=== PATIENT | female | born 1995 | race Caucasian/White ===

== ENCOUNTER → 2021-06-22 12:19 | Outpatient (CLI) | payer MEDICAID, SELFPAY | PROVIDERS: Visit Provider Nurse Practitioner | DX: U07.1 COVID-19 (principal) | CPT/HCPCS: C9803; U0003; U0005 ==

== ENCOUNTER 2021-11-29 19:26 | Emergency (ER) | payer MEDICAID, SELFPAY ==
[2021-11-29 19:29] VITALS: BP 119/63; PULSE 89; RESP 18; TEMP 36.5; O2SAT 97; BMI 42.5
--- NOTE | 2021-11-29 20:00 | PC.NURSE ---
PT AWARE OF PLAN OF CARE AND IS AGREEABLE. FAMILY AT BEDSIDE.
[2021-11-29 20:17] LABS: Microscopic, Urine URINE MICROSCOPIC (MICROSCOPIC)
[2021-11-29 20:22] LABS: Basophils # 0.1 K/mm3 (0-0.2); Basophils % 1.4 % (0.1-2.0); Eosinophils # 0.2 K/mm3 (0.0-0.4); Eosinophils % 2.7 % (0.1-12.0); Hematocrit 41.9 % (37.0-47.0); Lymphocytes # 3.7 K/mm3 (0.7-4.5); Mean Corpuscular HGB Conc 33.3 g/dL (31.8-35.4); Mean Corpuscular Hemoglobin 30.5 pg (27.0-31.2); Mean Corpuscular Volume 91.6 fl (81-99); Monocytes # 0.4 K/mm3 (0.1-1.0); Monocytes % 5.8 % (1.7-9.3); Neutrophils # 2.4 K/mm3 (1.8-7.8); Platelet Count 372 K/mm3 (142-424); Red Blood Count 4.57 M/mm3 (4.20-5.40); Red Cell Distribution Width 12.9 % (11.5-17.5); White Blood Count 6.7 K/mm3 (4.8-10.8)
[2021-11-29 20:24] LABS: Appearance,Urine SL CLOUDY (Clear); Bilirubin,Urine Negative (Negative); Blood, Urine TRACE-I (Negative); Color,Urine YELLOW (Yellow); Glucose,Urine (UA) Negative (Negative); Ketones,Urine Negative (Negative); Leukocyte Esterase,Urine Negative (Negative); Nitrate,Urine POSITIVE (Negative); Protein,Urine Negative (Negative); Specific Gravity, Urine >= 1.030 (1.005-1.030); Urobilinogen,Urine 0.2 EU/dl (0.2)
[2021-11-29 20:29] LABS: MANUAL DIFFERENTIAL MANUAL DIFFERENTIAL (MANUAL DIFF)
[2021-11-29 20:36] LABS: Chloride 106 mmol/L (98-107); Potassium 3.3 mmoL/L (3.5-5.1); Sodium 139 mmol/L (136-145)
[2021-11-29 20:37] LABS: Bacteria,Urine 4+ /lpf; Calcium Oxalate Crystals,Urine 1+ /lpf; RBC,Urine Occasional #/hpf (0-3)
[2021-11-29 20:38] LABS: Alanine Aminotransferase 57 U/L (12-78); Amylase 40 U/L (30-110); Aspartate Amino Transferase 39 U/L (14-36); Blood Urea Nitrogen 11 mg/dl (7-17); Creatinine Clearance Estimated 106 mL/min (50-200); Estimated Glomerular Filt Rate 120 ml/min (>60); GFR (African American) 145 ML/MIN (>60); Lactic Acid 0.7 mmol/L (0.7-2.1)
[2021-11-29 20:39] LABS: Albumin Level 3.9 g/dl (3.5-5.0); Albumin/Globulin Ratio 1.4 (1.1-1.8); Alkaline Phosphatase 60 U/L (38-126); Anion Gap 8.3 mEq/L (5-15); Bilirubin,Total 0.8 mg/dl (0.2-1.3); Carbon Dioxide 28 mmol/L (22.0-30.0); Globulin 2.8 g/dL (1.3-3.2); Glucose 90 mg/dl (74-100); Lipase 55 U/L (23-300); Total Protein,Serum 6.7 g/dl (6.3-8.2)
[2021-11-29 20:47] LABS: Eosinophils % 1 % (0-3); Lymphocytes % 56 % (10-50); Monocytes % 2 % (2-9); Neutrophils % 38 % (42-76); Platelet Estimate Normal; RBC Morphology Normal; Total Cells Counted 100
[2021-11-29 20:49] LABS: Magnesium 1.6 mg/dl (1.6-2.3)
--- NOTE | 2021-11-29 20:51 | PC.NURSE ---
Spoke with Roxana at [facility] pertaining to pt record from previous ER visit
--- NOTE | 2021-11-29 21:00 | PC.NURSE ---
NO COMPLAINTS VOICED. PT AWARE OF PLAN AND EXPECTED WAIT TIMES. BLANKET PROVIDED FOR PATIENT COMFORT.
[2021-11-29 21:13] VITALS: BP 135/71; PULSE 57; O2SAT 98
--- NOTE | 2021-11-29 21:30 | CT_ITS ---
PROCEDURE INFORMATION: Exam: CT Abdomen And Pelvis With Contrast Exam date and time: 11/29/2021 9:46 PM Age: 26 years old Clinical indication: Nausea and vomiting and other: Diarrhea; Abdominal pain; Generalized; Prior surgery; Surgery date: 6+ months; Surgery type: Partial hysterectomy gb; Additional info: Pain, n/v/d TECHNIQUE: Imaging protocol: Computed tomography of the abdomen and pelvis with contrast. Radiation optimization: All CT scans at this facility use at least one of these dose optimization techniques: automated exposure control; mA and/or kV adjustment per patient size (includes targeted exams where dose is matched to clinical indication); or iterative reconstruction. Contrast material: ISOVUE; Contrast volume: 75 ml; Contrast route: IV; COMPARISON: No relevant prior studies available. FINDINGS: Liver: Normal. No mass. Gallbladder and bile ducts: Cholecystectomy. Pancreas: Normal. No ductal dilation. Spleen: Normal. No splenomegaly. Adrenal glands: Normal. No mass. Kidneys and ureters: There is a simple cyst 1 cm in the right kidney requiring no further follow-up. No hydronephrosis. Stomach and bowel: Air-fluid levels in the colon and nondistended small bowel loops which could reflect low-grade enterocolitis and diarrhea. No wall thickening is seen. Appendix: Normal appendix. Intraperitoneal space: Unremarkable. No free air. No significant fluid collection. Vasculature: Unremarkable. No abdominal aortic aneurysm. Lymph nodes: Unremarkable. No enlarged lymph nodes. Urinary bladder: Unremarkable as visualized. Reproductive: Hysterectomy. Bones/joints: Unremarkable. No acute fracture. Soft tissues: Unremarkable. IMPRESSION: Low-grade enterocolitis and diarrhea. No additional acute findings in the abdomen pelvis. COMMENTS: Consistent with the [employer] [place] [employer]'s Incidental Findings Committee white paper (J Am Josue Radiol 2018): Any incidental renal lesion less than 1 cm or classified as too small to characterize, or any incidental cystic renal lesion characterized as simple-appearing, is likely benign. No follow-up imaging is recommended for these lesions per consensus recommendations based on imaging criteria.
--- NOTE | 2021-11-29 21:47 | PC.NURSE ---
Pt gone to RAD for CT
--- NOTE | 2021-11-29 21:58 | PC.NURSE ---
Pt back from RAD
--- NOTE | 2021-11-29 22:20 | HMH.EDGENADL ---
ED Disposition Clinical Impression: Gastroenteritis, Hypokalemia Disposition: Home, Self-Care Condition on Discharge: Good Instructions: DI for Acute Abdominal Pain, DI for Enteritis Additional Instructions: Please follow-up with your primary care provider over the next 72 hours. 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 Make sure that you stay orally hydrated. Return to the emergency department for any new or worsening symptoms. Prescriptions: Potassium Chloride [Klor-Con M20] 20 meq PO BID 5 Days #10 tab Transmission Status: Received by Sansan Promethazine HCl [Phenergan 25mg tab] 25 mg PO Q6H PRN #12 tab PRN Reason: Nausea And Vomiting Transmission Status: Received by [facility] Referrals: Rosie Mc APRN [Primary Care Provider] - - Critical Care Critical Care Time: No Attestation: On 11/29/21, the high probability of a clinically significant, sudden or life threatening deterioration of the following system(s) required my full and direct attention, intervention and personal management. The time I documented below is in addition to time spent performing reported procedures but includes the following listed in this critical care notation. Medical Decision Making - Natanael Inquiry Pt receiving controlled substance: No Vital Signs: 11/29/21 19:29 11/29/21 21:13 11/29/21 22:56 Temperature 97.7 F Temperature Source Oral Pulse Rate 57 L 60 Pulse Rate [Left Radial] 89 Respiratory Rate 18 20 Blood Pressure 135/71 115/64 Blood Pressure [Right Arm] 119/63 Blood Pressure Mean [Right Arm] 81 Blood Pressure Source [Right Arm] Automatic Cuff Blood Pressure Position [Right Arm] Sitting 02 Sat by Pulse Oximetry 97 98 99 Oxygen Delivery Method Room Air Room Air Room Air 11/29/21 23:48 Temperature 98.1 F Temperature Source Oral Pulse Rate 78 Pulse Rate [Left Radial] Respiratory Rate 16 Blood Pressure 99/67 L Blood Pressure [Right Arm] Blood Pressure Mean [Right Arm] Blood Pressure Source [Right Arm] Blood Pressure Position [Right Arm] 02 Sat by Pulse Oximetry Oxygen Delivery Method Room Air - Lab Data Lab Results 11/29/21 20:00: Urine Color Yellow, Urine Appearance Sl cloudy, Urine pH 6.0, Ur Specific Smoaks >= 1.030, Urine Protein Negative, Urine Glucose (UA) Negative, Urine Ketones Negative, Urine Blood Trace-i, Urine Nitrate Positive, Urine Bilirubin Negative, Urine Urobilinogen 0.2, Ur Leukocyte Esterase Negative, Urine RBC Occasional, Urine WBC 5-10, Ur Squamous Epith Cells 5-10, Calcium Oxalate Crystal 1+, Urine Bacteria 4+ 11/29/21 20:09: WBC 6.7, RBC 4.57, Hgb 14.0, Hct 41.9, MCV 91.6, MCH 30.5, MCHC 33.3, RDW 12.9, Plt Count 372, MPV 9.0, Neut % (Auto) 35.0 L, Lymph % (Auto) 55.0 H, Rolette % (Auto) 5.8, Eos % (Auto) 2.7, Baso % (Auto) 1.4, Neut # (Auto) 2.4, Lymph # (Auto) 3.7, Rolette # (Auto) 0.4, Eos # (Auto) 0.2, Baso # (Auto) 0.1, Total Counted 100, Neutrophils % (Manual) 38 L, Band Neutrophils % 3.0, Lymphocytes % (Manual) 56 H, Monocytes % (Manual) 2, Eosinophils % (Manual) 1, Platelet Estimate Normal, RBC Morphology Normal 11/29/21 20:09: Sodium 139, Potassium 3.3 L, Chloride 106, Carbon Dioxide 28, Anion Gap 8.3, BUN 11, Creatinine 0.60, Estimated Creat Clear 106, Estimated GFR 120, Est GFR ( Amer) 145, Glucose 90, Calcium 9.0, Total Bilirubin 0.8, AST 39 H, ALT 57, Alkaline Phosphatase 60, Total Protein 6.7, Albumin 3.9, Globulin 2.8, Albumin/Globulin Ratio 1.4, Amylase 40, Lipase 55 11/29/21 20:09: Lactate 0.7 11/29/21 20:09: Magnesium 1.6 Result diagrams: 11/29/21 20:09 11/29/21 20:09 Orders (Tests/Meds): ED MEDICATIONS Discontinued Medications Generic Name Dose Route Start Last Admin Trade Name Freq PRN Reason Stop Dose Admin Lactated Ringer's 1,000 mls @ 999 mls/hr 11/29/21 20:30 11/29/21 20:20 Lactated Ringer's 1000 Ml Bag IV 07/29/22 21:30 999 mls/hr .Q1H1M MERCEDES Ad
--- NOTE | 2021-11-29 22:40 | PC.NURSE ---
PT AWARE OF PLAN FOR DISCHARGE. NO COMPLAINTS VOICED. FAMILY AT BEDSIDE. WCM.
[2021-11-29 22:56] VITALS: BP 115/64; PULSE 60; RESP 20; O2SAT 99
[2021-11-29 23:48] VITALS: BP 99/67; PULSE 78; RESP 16; TEMP 36.7; O2SAT 98
== END 2021-11-29 23:50 | disposition home or self-care (01) ==
PROVIDERS: Emergency Provider Emergency Medicine; PCP Nurse Practitioner Family
DX: R10.13 Epigastric pain (principal); R11.2 Nausea with vomiting, unspecified; R19.7 Diarrhea, unspecified; E86.0 Dehydration; R07.9 Chest pain, unspecified; R06.02 Shortness of breath; Z88.0 Allergy status to penicillin; Z88.1 Allergy status to other antibiotic agents; Z88.3 Allergy status to other anti-infective agents; Z88.8 Allergy status to other drugs, medicaments and biological substances
CPT/HCPCS: 74177; 80053; 81001; 82150; 83605; 83690; 83735; 85007; 85025; 87040; 87086; 87088; 87186; 96361; 96374; 96375; 99285; J2405; Q9967

== ENCOUNTER 2022-07-28 14:21 | Emergency (ER) | payer MEDICAID, SELFPAY ==
[2022-07-28 14:24] VITALS: BP 126/82; PULSE 91; O2SAT 100
[2022-07-28 14:30] VITALS: BP 126/82; PULSE 86; RESP 18; TEMP 36.9; O2SAT 100; BMI 46.6
[2022-07-28 14:31] VITALS: BP 127/86; PULSE 85; O2SAT 96
--- NOTE | 2022-07-28 14:36 | CT_ITS ---
FINAL REPORT CLINICAL HISTORY: headache, poss seizure, difficulty speaking FINDINGS: Thin section axial images were obtained through the neck after contrast administration per CT angiogram protocol. Multiplanar reconstruction images were obtained from the axial data. Exam was performed using dose reduction technique. CTA NECK: Aortic arch: There is a normal three-vessel configuration to the aortic arch. There is no significant stenosis of the great vessels at their origins. Right carotid artery: The right common carotid artery is patent without stenosis. The cervical portions of the right internal carotid artery are patent without stenosis. Left carotid artery: The left common carotid artery is patent without stenosis. The cervical portions of the left internal carotid artery are patent without stenosis. Vertebral arteries: The vertebral arteries are patent. IMPRESSION: No significant stenosis or occlusion. Reviewed, Interpreted and Dictated by Racquel Mejía MD Transcribed by Rosie Borges Authenticated and [facility]
--- NOTE | 2022-07-28 14:36 | CT_ITS ---
FINAL REPORT TECHNIQUE: Thin section axial images are obtained through the brain after intravenous contrast injection. Multiplanar reconstructions were obtained from the axial data. Exam was performed using dose reduction technique per the ALARA principal. CLINICAL HISTORY: headache, following seizure and now has speech disturbance FINDINGS: The intracerebral portions of the carotid arteries are patent. The anterior and middle cerebral arteries are patent. The basilar artery is very small. In the mid and distal basilar artery is an area of narrowing which could be related to vaso spasm. The left PCOM is prominent and directly supplies portions of the distal basilar artery. Posterior cerebral and vertebral arteries are patent. Otherwise, there is no significant stenosis, aneurysm, or AVM. 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 Large left posterior communicating artery contributes to posterior circulation. Patent anterior circulation with no stenosis or aneurysm Reviewed, Interpreted and Dictated by Racquel Mejía MD Transcribed by Rosie Borges Authenticated and [facility]
--- NOTE | 2022-07-28 14:36 | CT_ITS ---
FINAL REPORT TECHNIQUE: Thin section axial images were obtained from skull base to vertex without contrast. Coronal reconstruction images were obtained from the axial data. Exam was performed using dose reduction technique. CLINICAL HISTORY: headache following seizure and speech disturbance FINDINGS: There is no mass effect or midline shift. There is no hydrocephalus. There is no intracranial hemorrhage. The posterior fossa is without acute abnormality. The basilar cisterns are preserved. The soft tissues are without acute abnormality. No acute osseous abnormality is identified. IMPRESSION: No acute intracranial abnormality. Reviewed, Interpreted and Dictated by Racquel Mejía MD Transcribed by Rosie Borges Authenticated and [facility]
[2022-07-28 14:44] LABS: Basophils # 0.1 K/mm3 (0-0.2); Basophils % 1.3 % (0.1-2.0); Eosinophils # 0.2 K/mm3 (0.0-0.4); Eosinophils % 2.2 % (0.1-12.0); Hematocrit 43.5 % (37.0-47.0); Hemoglobin 14.5 g/dL (12.2-16.2); Lymphocytes # 3.3 K/mm3 (0.7-4.5); Lymphocytes % 37.1 % (10-50); Mean Corpuscular HGB Conc 33.3 g/dL (31.8-35.4); Mean Corpuscular Hemoglobin 30.5 pg (27.0-31.2); Mean Corpuscular Volume 91.4 fl (81-99); Mean Platelet Volume 7.6 fl (7.4-10.4); Monocytes # 0.4 K/mm3 (0.1-1.0); Monocytes % 4.1 % (1.7-9.3); Neutrophils # 4.9 K/mm3 (1.8-7.8); Neutrophils % 55.3 % (37.0-80.0); Platelet Count 413 K/mm3 (142-424); Red Blood Count 4.76 M/mm3 (4.20-5.40); Red Cell Distribution Width 12.6 % (11.5-17.5); White Blood Count 8.8 K/mm3 (4.8-10.8)
[2022-07-28 14:46] LABS: Chloride 104 mmol/L (98-107); Sodium 137 mmol/L (136-145)
[2022-07-28 14:49] LABS: Alanine Aminotransferase 22 U/L (12-78); Albumin Level 4.4 g/dl (3.5-5.0); Albumin/Globulin Ratio 1.5 (1.1-1.8); Alkaline Phosphatase 63 U/L (38-126); Aspartate Amino Transferase 27 U/L (14-36); Bilirubin,Total 0.9 mg/dl (0.2-1.3); Blood Urea Nitrogen 12 mg/dl (7-17); Carbon Dioxide 29 mmol/L (22.0-30.0); Creatinine Clearance Estimated 132 mL/min (50-200); Estimated Glomerular Filt Rate 147 ml/min (>60); GFR (African American) 178 ML/MIN (>60); Globulin 2.9 g/dL (1.3-3.2); Total Protein,Serum 7.3 g/dl (6.3-8.2)
[2022-07-28 14:50] LABS: Calcium 9.2 mg/dl (8.4-10.2); Glucose 93 mg/dl (74-100); Magnesium 1.9 mg/dl (1.6-2.3)
[2022-07-28 14:59] LABS: HCG Qualitative, Serum Negative (Negative)
--- NOTE | 2022-07-28 15:03 | PC.NURSE ---
PT AMBULATED UP TO BR
[2022-07-28 15:06] LABS: Troponin I < 0.01 ng/ml (0.00-0.034)
[2022-07-28 15:16] VITALS: BP 175/86; PULSE 68; O2SAT 99
[2022-07-28 15:19] VITALS: BP 100/49; PULSE 71; O2SAT 100
[2022-07-28 15:20] LABS: Thyroid Stimulating Hormone 1.14 uIU/mL (0.465-4.68)
--- NOTE | 2022-07-28 15:35 | HMH.EDGENADL ---
Discharge Plan Disposition Chief Complaint: Seizure Prescriptions Prescriptions: No Action bupropion HCl 75 MG tablet 1 tab PO DAILY Referrals Follow up/Referrals: Provider,Referral, MD [Primary Care Provider] - See instructions Activity Restrictions/Add. Instructions Additional Instructions/Restrictions: Return for worsening pain weakness or any other concerns within the next 8 hours otherwise follow-up with your primary care physician next few days Clinical Impressions Clinical Impression: Dizziness Instructions Patient Instructions: DI for Seizure Disorder -- Adult, DI for Seizure (Not Epilepsy/Seizure Disorder), DI for Seizure Disorder -- Child Discharge ED Provider: Evan Kong General Adult HPI General Chief complaint: Seizure Stated complaint: seizure activity Time Seen by Provider: 07/28/22 14:25 Mode of Arrival: EMS Source of Information: Patient Limitations: No Limitations Description of Symptoms (Recalled from ER Triage Doc. by RN): Pt from work via EMS who report four seizure-like episodes when patient become suddenly unresponsive and flaccid and coworkers caught her going down but witnessed no tonic-clonic activty or known previous PMHx; pt presents apparantly aphasic, and intimating that History of Present Illness HPI narrative: 27-year-old female presents after episodes of staring. She had 4 episodes where she stared off into space and then became less responsive per coworkers. No generalized movement. She was unable to speak after that and had drooping of her left side face and forehead. When she initially arrived she was having difficulty speaking however she could understand things. She had no weakness in her arms or legs able to ambulate. She was awake and alert and not confused. No history of migraines or seizures. Related Data Home Medications Medication Instructions Recorded Confirmed bupropion HCl 75 mg tablet 1 tab PO DAILY ANXIETY AND 11/29/21 07/28/22 DEPRESSION Allergies Allergy/AdvReac Type Severity Reaction Status Date / Time amoxicillin [From Augmentin] Allergy Verified 11/29/21 20:10 clavulanic acid Allergy Verified 11/29/21 20:10 [From Augmentin] [facility] Disclaimer: The information contained in this section may have been updated after the patient was seen, as this information can be updated by other users. Social History Smoking Status: Current every day smoker alcohol intake: former current occupational status: other Travel in the last 8 weeks: Inside the [place] ROS Obtained: Yes All systems reviewed & no additional complaints except as documented Constitutional Constitutional: Denies fatigue Eyes Eyes: Denies dry eyes ENT Ears, Nose, Mouth, and Throat: Denies dizziness Cardiovascular Cardiovascular: Denies diaphoresis and Denies dyspnea Respiratory Respiratory: Denies dyspnea and Denies wheezing Gastrointestinal Gastrointestingal: Denies constipation or nausea Genitourinary Female Genitourinary: Denies hematuria Musculoskeletal Musculoskeletal: Denies joint swelling Integumentary/Breasts Skin/Breast: Denies dry skin Neurologic Neurologic: Denies dizziness Endocrine Endocrine: Denies fatigue Hematologic/Lymphatic Henatologic/Lymphatic: Denies easy bleeding Allergic/Immunologic Allergic/Immunologic: Denies wheezing Physical Exam General General appearance: alert and in no apparent distress Eye Eye exam: Present PERRL and EOMI ENT ENT exam: Present normal exam and normal oropharynx Neck Neck exam: Present normal inspection Chest Chest inspection: Present symmetric chest wall rise Respiratory Respiratory exam: Present normal lung sounds bilaterally; Absent respiratory distress Cardiovascular Cardiovascular exam: Present regular rate and normal rhythm Abdominal Exam Abdominal exam: Present soft; Absent distention, tenderness, guarding, rebound, Dill's sign or tenderness at McBurney's Point Back Exam
--- NOTE | 2022-07-28 15:38 | PC.NURSE ---
rad states cts are being read at this time
[2022-07-28 17:05] VITALS: BP 119/75; PULSE 86; RESP 19; TEMP 36.8; O2SAT 97
== END 2022-07-28 17:06 | disposition home or self-care (01) ==
PROVIDERS: Emergency Provider Emergency Medicine
DX: G40.919 Epilepsy, unspecified, intractable, without status epilepticus (principal); R42 Dizziness and giddiness
CPT/HCPCS: 70450; 70496; 70498; 80053; 83735; 84443; 84484; 84703; 85025; 96360; 96374; 96375; 99284; 99285; Q9967

== ENCOUNTER → 2022-09-05 13:25 | Outpatient (CLI) | payer MEDICAID, SELFPAY ==
--- NOTE | 2022-09-05 13:34 | US_ITS ---
FINAL REPORT TECHNIQUE: Real-time grayscale and color ultrasound of the thyroid was performed. CLINICAL HISTORY: enlarged asymmetrical thyroid COMPARISON: None FINDINGS: The thyroid gland measures 42 mm on the right and 36 mm on the left. The isthmus measures 5 mm. Parenchyma is heterogeneous. No nodules are identified. IMPRESSION: Heterogeneous parenchyma with no suspicious nodules identified, TR 1. Reviewed, Interpreted and Dictated by Cipriano Smith MD Transcribed by Antonina Rdz Authenticated and . [facility]
== END ==
PROVIDERS: PCP Nurse Practitioner Family; Visit Provider Nurse Practitioner Family
DX: E01.0 Iodine-deficiency related diffuse (endemic) goiter (principal)
CPT/HCPCS: 76536

== ENCOUNTER → 2022-09-26 15:08 | Outpatient (CLI) | payer MEDICAID, SELFPAY ==
--- NOTE | 2022-09-26 15:08 | MR_ITS ---
FINAL REPORT CLINICAL HISTORY: seizure. HEADACHE. BLURRED VISION. COMPARISON: 07/28/2022 FINDINGS: Multiplanar MR imaging of the brain was performed without and with contrast. There is no evidence of intracranial hemorrhage or mass. No abnormal extra-axial fluid collection is seen. The ventricular size is within normal limits. There is no evidence of shift of the midline structures. The posterior fossa and brainstem have an unremarkable appearance. No area of abnormal restricted diffusion is identified. No abnormal contrast enhancement is seen. Normal major vessel vascular flow voids are noted. IMPRESSION: No acute intracranial abnormality identified. Reviewed, Interpreted and Dictated by Tavo Huynh III, MD Transcribed by Rosie Borges Authenticated and [facility] [place] [place]
== END ==
PROVIDERS: PCP Nurse Practitioner Family; Visit Provider Nurse Practitioner Family
DX: R56.9 Unspecified convulsions (principal); F39 Unspecified mood [affective] disorder; G47.19 Other hypersomnia; R06.83 Snoring; R94.01 Abnormal electroencephalogram [EEG]; E66.01 Morbid (severe) obesity due to excess calories; Z68.41 Body mass index [BMI] 40.0-44.9, adult
CPT/HCPCS: 70553; A9576

== ENCOUNTER → 2022-10-01 12:02 | Outpatient (CLI) | payer MEDICAID, SELFPAY ==
[2022-10-01 15:21] LABS: Vitamin B12 424 pg/mL (239-931)
[2022-10-01 15:34] LABS: Folate 5.01 ng/mL
== END ==
LOC: LAB 12:03
PROVIDERS: PCP Nurse Practitioner Family; Visit Provider Nurse Practitioner Family
DX: R56.9 Unspecified convulsions (principal); F39 Unspecified mood [affective] disorder; R94.01 Abnormal electroencephalogram [EEG]; G47.19 Other hypersomnia; R06.83 Snoring; E66.01 Morbid (severe) obesity due to excess calories; Z68.41 Body mass index [BMI] 40.0-44.9, adult
CPT/HCPCS: 36415; 82607; 82746; 94762

== ENCOUNTER 2023-06-18 09:55 | Outpatient (CLI) | payer MEDICAID, SELFPAY ==
--- NOTE | 2023-06-18 10:00 | XR_ITS ---
FINAL REPORT CLINICAL HISTORY: right hip pain COMPARISON: None FINDINGS: AP and frog leg views of the right hip were obtained. There is no prior exam for comparison. There are postoperative changes in the right acetabulum, with orthopedic screws and plates present. There is no acute fracture or dislocation. Mild degenerative change is present with superolateral subluxation of the right femur, and mild chronic deformity of the superior femoral head. Soft tissues are within normal limits. IMPRESSION: No acute osseous abnormality of the right hip. Postop changes in the right acetabulum as described, with superolateral subluxation of the right femur and mild chronic deformity of the superior femoral head. Reviewed, Interpreted and Dictated by Tavo Huynh III, MD Transcribed by Jeri Chavarria Authenticated and . [facility]
== END 2023-06-18 23:59 ==
LOC: RAD 09:56
PROVIDERS: PCP Nurse Practitioner Family; Visit Provider Orthopaedic Surgery
DX: M25.551 Pain in right hip (principal)
CPT/HCPCS: 73502

== ENCOUNTER 2024-02-03 09:59 | Emergency (ER) | payer MEDICAID, SELFPAY ==
[2024-02-03 10:00] VITALS: BP 115/79; PULSE 80; RESP 16; TEMP 36.6; O2SAT 100; BMI 47.5
--- NOTE | 2024-02-03 10:55 | HMH.EDGENADL ---
Discharge Plan Disposition Patient Disposition: Home, Self-Care Chief Complaint: Wound/Laceration Prescriptions Prescriptions: No Action No Known Home Medications Referrals Follow up/Referrals: Rosie Mc APRN [Primary Care Provider] - See instructions Activity Restrictions/Add. Instructions Additional Instructions/Restrictions: At this time it was felt you are safe to be discharged home. If new or worsening symptoms please do not hesitate to return the emergency department. The glue will fall off as your skin heals. If signs of infection such as swelling or streaking redness or pus please present immediately to the emergency department. It is okay to take a shower however do not submerge your hand in water. Clinical Impressions Clinical Impression: Fingertip avulsion Instructions Patient Instructions: DI for Laceration Repair Print Language Print Language: Green[place]ic Discharge ED Provider: Amadou Chavez General Adult HPI General Chief complaint: Wound/Laceration Stated complaint: AO 02/03/24 cut tip of middle finger, left hand Time Seen by Provider: 02/03/24 10:14 Mode of Arrival: Ambulatory Source of Information: Patient Limitations: No Limitations Description of Symptoms (Recalled from ER Triage Doc. by RN): pt to the ED with a laceration to her left ring finger. pt reports she lost her balance in the shower and went to reach for her shelf to catch herself and when she did she accidentally grabbed her olimpia. pt denies any dizziness or weakness and stated she only lost her balance because she just recently had right hip surgery and is utilizing a shower chair for recovery. History of Present Illness HPI narrative: Patient is a 28-year-old female with no pertinent past medical history, right-handed who presents emergency department for evaluation of traumatic injury sustained to her left middle finger tip. Patient was in the shower when she slipped inadvertently slicing her fingertip with her razor blade that was in the shower. No falls, no other traumatic complaints at this time. Related Data Home Medications ?Medication ?Instructions ?Recorded ?Confirmed No Known Home Medications 06/18/23 06/18/23 Allergies Allergy/AdvReac Type Severity Reaction Status Date / Time amoxicillin [From Augmentin] Allergy Verified 06/18/23 10:53 clavulanic acid Allergy Verified 06/18/23 10:53 [From Augmentin] [facility] Disclaimer: The information contained in this section may have been updated after the patient was seen, as this information can be updated by other users. Family History Other Cancer Diabetes Heart attack Stroke Social History Smoking Status: Never smoker alcohol intake: former substance use type: former substance user and marijuana current occupational status: employed Travel in the last 8 weeks: None household members: spouse housing: other marital status: number of children: 2 Other Medical History Have you received the Flu Vaccine for this season: No Have you received the Pneumonia Vaccine: No ROS Obtained: Yes Systems reviewed as appropriate & no additional complaints except as documented Physical Exam General General appearance: alert and in no apparent distress Head Head exam: atraumatic and normocephalic Eye Eye exam: Present PERRL ENT ENT exam: Present mucous membranes moist Neck Neck exam: Present normal inspection Chest Chest inspection: Present normal inspection and symmetric chest wall rise Respiratory Respiratory exam: Absent respiratory distress Cardiovascular Cardiovascular exam: Present regular rate and normal rhythm Abdominal Exam Abdominal exam: Present soft Extremities Exam Extremities exam: Present normal inspection and other (Left middle fingertip scab that is tender, no nailbed involvement, no nail plate involvement, no active bleeding. Capillary refill preserved.) Neurological Exam Neurological exam: Present alert Psychiatric Psychiatric exam: Present normal affect Skin Skin exam: Present warm and dry Medical Decision Making Medical Records Screening: Per USPSTF and CDC recommendations, given the prevalence of disease in our region, it is our hospital?s policy to screen for HIV and viral Hepatitis for all patients aged 18 and over and those with ongoing risk factors. Natanael Inquiry Pt receiving controlled substance: No Vital Signs: 02/03/24 10:00 Temperature 97.9 F Temperature Source Oral Pulse Rate [Left Radial] 80 Respiratory Rate 16 Blood Pressure [Right Arm] 115/79 Blood Pressure Mean [Right Arm] 91 Blood Pressure Source [Right Arm] Automatic Cuff Blood Pressure Position [Right Arm] Sitting 02 Sat by Pulse Oximetry 100 Oxygen Delivery Method Room Air Orders (Tests/Meds): ED MEDICATIONS Discontinued Medications Generic Name Dose Route Start Last Admin Trade Name Freq PRN Reason Stop Dose Admin Tetanus/Reduced Diphtheria/Acell Pertussis 0.5 ml 02/03/24 10:59 02/03/24 11:30 Tet/Diphth/Pert-Adult 0.5ml Syringe IM 02/03/24 11:00 0.5 ml .ONCE ONE Administration Medical Decision Narrative: In summary patient is a 28-year-old female past medical history described above who presents emergency department for evaluation of traumatic injury sustained to her left middle finger. Patient is hemodynamically stable upon arrival. To facilitate physical exam and utility of sutures and glue digital block was performed with success. Imaging for fracture was considered but given mechanism will be deferred at this time as I have low concern. Tdap not up-to-date will be administered. Wound underwent repair with success and hemostasis was achieved. Patient is appropriate for outpatient management at this time and was given infectious return precautions. Procedure: Procedure performed was wound repair. Procedure performed by Amadou Chavez. Digital block performed with lidocaine without epinephrine, 10 cc instilled, anesthesia achieved. The end of the fingertip was cleaned with Hibiclens and sterile water removing the scab revealing a devitalized piece of tissue which was removed with scissors. Wound again cleaned with Hibiclens and water and finger tourniquet applied hemostasis achieved. Tissue defect was glued. Hemostasis achieved. Bandage applied. Patient tolerated procedure well there were no immediate complications. Critical Care Critical Care Time Critical Care Time: No
[2024-02-03] MEDS: TET/DIPHTH/PERT-ADULT 0.5ML SYRINGE 0.5 ML IM (11:30)
[2024-02-03 11:55] VITALS: BP 115/79; PULSE 80; RESP 16; TEMP 36.6; O2SAT 100
== END 2024-02-03 11:55 | disposition home or self-care (01) ==
PROVIDERS: Emergency Provider Emergency Medicine; PCP Nurse Practitioner Family
DX: S61.209A Unspecified open wound of unspecified finger without damage to nail, initial encounter (principal); Z23 Encounter for immunization; W26.8XXA Contact with other sharp object(s), not elsewhere classified, initial encounter; Y93.89 Activity, other specified; Y92.002 Bathroom of unspecified non-institutional (private) residence as the place of occurrence of the external cause
CPT/HCPCS: 90471; 90715; 99283